=== PATIENT | female | born 2000 | race Caucasian/White ===

== ENCOUNTER 2020-03-02 23:30 | Emergency (ER) | payer SELFPAY ==
[~2020-03-02] VITALS: Ht 167.6 cm; Wt 73.6 kg
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
[2020-03-03 00:58] VITALS: BP 94/54
== END 2020-03-03 00:58 | disposition short-term general hospital (02) ==
LOC: ER 23:30 → EEVIPCON 23:30 → ER 03-03 00:58
DX: T74.21XA Adult sexual abuse, confirmed, initial encounter (principal); Z88.2 Allergy status to sulfonamides; X58.XXXA Exposure to other specified factors, initial encounter; Y93.89 Activity, other specified; Y92.89 Other specified places as the place of occurrence of the external cause; Y99.8 Other external cause status
CPT/HCPCS: 99281

== ENCOUNTER → 2020-05-20 | Outpatient (CLI) | payer BC | LOC: LAB 13:47 | PROVIDERS: ATTEND Nurse Practitioner Family | DX: R79.89 Other specified abnormal findings of blood chemistry (principal) | CPT/HCPCS: 36415; 84484 ==